=== PATIENT | female | born 1945 | race Caucasian/White ===

== ENCOUNTER 2019-03-04 07:02 | Observation (INO) | payer OTHER ==
[~2019-03-04] VITALS: Ht 157.5 cm; Wt 80.7 kg
[2019-03-04 07:29] VITALS: BP 145/93
[2019-03-04 08:48] VITALS: BP 145/93
[2019-03-04] MEDS ORDERED: LIPI20 PO (16:00)
[2019-03-04] MEDS ORDERED: CLOTRIMAZOLE TR10 M1 MM (16:01)
[2019-03-04] MEDS ORDERED: ARICEPT5 MG PO (16:01)
[2019-03-04] MEDS ORDERED: OXYBUTYNIN CHLO15 M1 PO (16:02)
[2019-03-04] MEDS ORDERED: CARVEDILOL6.25 M1 PO (16:02)
[2019-03-04] MEDS ORDERED: PAROXETINE HCL20 M1 (16:03)
[2019-03-04] MEDS ORDERED: LOSARTAN POTASS50 M1 (16:03)
[2019-03-04] MEDS ORDERED: METFORMIN500 M1 PO (16:04)
[2019-03-04] MEDS ORDERED: LORAZEPAM1 MG (16:05)
--- NOTE | 2019-03-04 16:45 | NUR ---
RECEIVED PATIENT ALERT AND ORIENTED WITH DRESSING TO [facility] LEFT KNEE. PATIENT IS S/P TOTAL KNEE AND HAD SUTURES AND DERMABOND IN PLACE. COLD FLOW MACHINE IN PLACE AND PATIENT HAD RECEIVED DILAUDID AND ANCEF IN THE OR. PATIENT HAS VITALS STABLE AND NO FEVER NOTED. PATIENT HAS PHAN TO GRAVITY AND URINE IS REED. PATIENT HAS HSITOR OF OVERACTIVE BLADDER, SURGERY TO THE SPINE,HYSTERECTOMY, DIABETES, HTN, LYMPHOMA WITH CHEMO IN 2016 AND CHOLECYSECTOMY AND HERNIA REPAIR. SHE STATES SHE HAS BILATERAL CATARACTS TTHE EYES AND HAD BEEN WALKING WITH A CANE AT HOME. PATIENT HAS FAMILY AT BEDSIDE AND ATTENTIVE WITH CARE. PATIENT HAS NOT AMBULATED SINCE ARRIVAL TO [facility] FLOOR. SHE IS REQUESTING FOOD AND COFFEE. OFFERED FLUIDS AND NO CCHO DIET INDICATED. APTIENT HAS ALLERGY TO BACTROBAN. NEOMYCIN AND POLYMYOCIN. PATIENT VITALS AT [facility] TIME AT188/74, 95MAP, 58, 20, 98.3.
--- NOTE | 2019-03-04 17:06 | NUR ---
RECEIVED PT VIA GUERNEY FROM O/[facility], ACCOMPANIED BY RN, TRANSPORTER, AND PT'S SON, FELICE GUTIERREZ. PT A/A/O X 4, CALM, COOPERATIVE; WEARS GLASSES (W/ PT). PT S/P TOTAL L KNEE REPLACEMENT 03/04/19, LLE WEAKNESS W/ WT BEARING VINITA, +C/S/M, FALL RISK PROTOCOL IN PLACE; USES CANE AT HOME TO AMBULATE; RYAN RADIAL AND PEDAL PULSES PRESENT, CAP REFILL < 3 SECS, +2 NON-PITTING EDEMA AROUND SURGICAL SITE, SCD BY BEDSIDE; SURGICAL INCISION PER PHOTO SENT BY O/R RUNNING FROM LEFT LOWER THIGH TO LEFT KNEE TO LEFT UPPER LOWER LEG W/ SUTURES, DERMABOND MESH, AQUACEL, AND JUSTIN-WRAP; [facility] C[facility] DEVICE IN PL[facility]; DRESSING TO BE KEPT FOR 2 WEEKS UNTIL OUTPT VISIT; C/O CONSTANT DULL PAIN TO L KNEE 5/10, EXACERBATED BY MOVEMENT AND WALKING, RELIEVED BY REST AND PAIN MEDICATION. DENIES CHEST PAIN OR DISCOMFORT AT THIS TIME. LUNGS CTAB, CHEST RISING EVENLY, 2LNC, 94%, NO ACUTE RESPIRATORY DISTRESS NOTED. PT VOIDS FREELY BUT ON F/C FOR COMFORT D/T S/P L KNEE SX, DRAINING CLEAR YELLOW URINE. IV SITE RH 22G, CDI. ORIENTED PT AND SON TO ROOM, BED CONTROLS, CALL LIGHT SYSTEM. SIDE RAILS UP X 2, BED IN LOW POSITION. WILL ENDORSE TO MURTAZA LEON.
--- NOTE | 2019-03-04 19:30 | NUR ---
RECEIVED PATIENT IN BED AWAKE, ALERT AND ORIENTED. DENIES POST OPERATIVE APIN AT THIS TIME. BREATHING EASY AND NONLABOR SATTING AT 96% ON O2 AT 2L VIA NC. PHAN TO GRAVITY WITH YELLOW URINE OUTPUT. DRESSING TO LEFT KNEE CDI WITH COLD PACK MACHINE IN PLACE. IV TO RH INTACT AND INFUSING WELL. WILL CONTINUE TO MONITOR. CALL LIGHT WITHIN REACH.
[2019-03-04 20:49] LABS: CALCIUM 8.4 mg/dL (8.5-10.1); CARBON DIOXIDE 23.7 mmol/L (21-32); CHLORIDE SERUM 109 mmol/L (98-107); CREATININE SERUM 1.1 mg/dL (0.6-1.0); GLUCOSE SERUM 231 mg/dL (74-106); POTASSIUM SERUM 4.7 mmol/L (3.5-5.1); SODIUM SERUM 144 mmol/L (136-145)
[2019-03-04 21:07] VITALS: BP 178/66
[2019-03-04 21:15] VITALS: BP 155/67
--- NOTE | 2019-03-05 01:39 | NUR ---
STILL AWAKE WATCHING TELEVISION, DENIES POST OPERATIVE PAIN . WILL CONTINUE TO MONITOR.
[2019-03-05 05:11] VITALS: BP 140/55
--- NOTE | 2019-03-05 05:12 | NUR ---
SLEPT AT LONG INTERVALS. DENIES PAIN TO OPERATIVE SITE THE ENTIRE SHIFT. ALL NEEDS ATTENDED.
[2019-03-05 07:19] LABS: PLATELET COUNT 140 x10^3mcL (130-400); RED CELL DISTRIBUTION WIDTH 13.1 % (11.5-14.5)
--- NOTE | 2019-03-05 07:25 | NUR ---
RECEIVED PT. IN BED A/A/O X 3. NO SOB, NO N/V NOTED. PT. DENIES ANY PAIN AT THIS TIME. NS RUNNING AT 80 CC/HR VIA IV SITE AT R HAND. F/C DRAINING REED URINE. COOL PACK MACHINE NOTED TO LLE. ROBERTO CARLOS CATH. NOTED TO R CHEST. BED IN LOW POS., CALL LIGHT WITHIN REACH. SIDE RAILS UP X3.
[2019-03-05 07:37] LABS: CALCIUM 8.2 mg/dL (8.5-10.1); CARBON DIOXIDE 25.6 mmol/L (21-32); CHLORIDE SERUM 108 mmol/L (98-107); CREATININE SERUM 1.3 mg/dL (0.6-1.0); GLUCOSE SERUM 189 mg/dL (74-106); POTASSIUM SERUM 5.2 mmol/L (3.5-5.1); SODIUM SERUM 142 mmol/L (136-145)
[2019-03-05 07:49] LABS: BASOPHIL % 0 % (0-2)
[2019-03-05 11:00] VITALS: BP 124/53
--- NOTE | 2019-03-05 15:17 | NUR ---
RECEIVED A PHONE CALL FROM DR. ALMANZA RAGARDING PT.'S CONDITION. DR. ALMANZA WAS UPDATED ON PT.'S CONDITION. K LEVEL (5.2) WAS REPORTED TO DR. ALMANZA. NO FURTHER ORDER RECEIVED AT THIS TIME. DR. ALMANZA SAID TO REMOVE F/C TODAY AND THAT PT. CAN POSSIBLY BE DISCHARGED THIS AFTERNOON. DR. ALMANZA SAID TO LEAVE THE DRESSING TO LEFT KNEE IN PLACE FOR 2 WEEKS UNTIL PT. IS SEEN BY HIM. DR. ALMANZA STATED TO REMOVE ONLY THE COOL PACK MACHINE TO LLE PRIOR TO PT.'S DISCHARGE.
--- NOTE | 2019-03-05 15:40 | NUR ---
PT. STATED THAT SHE STILL FEELS ON AND OFF NUMBNESS TO HER LLE AND THAT SHE PREFERED TO STAY ONE MORE NIGHT TO MAKE SURE EVERYTHING IS FINE BEFORE GOING HOME. DR. ALMANZA WAS MADE AWARE OF PT.'S C/O ON AND OFF FEELING OF NUMBNESS TO HER LLE AND THAT PT. PREFERED TO STAY ONE MORE NIGHT. DR. ALMANZA STATED " OK, LET THE PATIENT STAY ONE MORE NIGHT. WE'LL DISCHARGE HER IN THE MORNING AFTER PHYSICAL THERAPY."
--- NOTE | 2019-03-05 16:51 | NUR ---
REMAINS IN STABLE CONDITION AT THIS TIME. PT. VOIDED FREELY POST F/C REMOVAL. WILL CONTINUE TO MONITOR.
[2019-03-05 17:47] VITALS: BP 112/52
--- NOTE | 2019-03-05 20:09 | NUR ---
RECEIVED PATIENT IN BED AWAKE, ALERT AND ORIENTED WITH NO C/O PAIN TO LEFT KNEE. DRESSING CDI WITH JUSTIN WRAP BANDAGE IN PLACE AND COOL PACK MACHINE. BREATHING EASYA ND NONLABOR SATTING AT 99% RA. IV TO RH INTACT AND INFUSING WELL. WILL CONTINUE TO MONITOR. CALL LIGHT WITHIN REACH.
[2019-03-05 21:03] VITALS: BP 136/66
--- NOTE | 2019-03-05 21:17 | NUR ---
C/O POST OPERATIVE PAIN ON LEFT KNEE. NORCO 1TAB PO GIVEN PRESCRIBED. WILL CONTINUE TO MONITOR.
--- NOTE | 2019-03-05 23:40 | NUR ---
SLLEPING THIS TIME AFTER PAIN MEDS WAS GIVEN. WILL CONTINUE TO MONITOR.
--- NOTE | 2019-03-06 02:52 | NUR ---
AWAKE THIS TIME C/O PPAIN TO LEFT KNEE, NORCO 1 TAB PO GIVEN PRESCRIBED.
--- NOTE | 2019-03-06 05:27 | NUR ---
SLEPT FAIRLY C/O POST OP PAIN X2 THE ENTIRE SHIFT AND MEDICATED PRESCRIBED. ALL NEEDS ATTENDED.
[2019-03-06 06:20] VITALS: BP 125/62
[2019-03-06 06:36] LABS: BASOPHIL % 0.2 % (0-2); PLATELET COUNT 133 x10^3mcL (130-400); RED CELL DISTRIBUTION WIDTH 13.5 % (11.5-14.5)
[2019-03-06 06:56] LABS: CALCIUM 8.4 mg/dL (8.5-10.1); CARBON DIOXIDE 27.2 mmol/L (21-32); CHLORIDE SERUM 110 mmol/L (98-107); CREATININE SERUM 1.2 mg/dL (0.6-1.0); GLUCOSE SERUM 187 mg/dL (74-106); POTASSIUM SERUM 4.9 mmol/L (3.5-5.1); SODIUM SERUM 144 mmol/L (136-145)
[2019-03-06] MEDS ORDERED: COL100 PO (07:14)
[2019-03-06] MEDS ORDERED: ACETAMINOPHEN-H1 TA1 PO (07:14)
[2019-03-06] MEDS ORDERED: ECO81 PO (07:15)
--- NOTE | 2019-03-06 07:30 | NUR ---
PT IS AAO4. VERBALLY REPOSPONSIVE, ABLE TO MAKE NEEDS KNOWN. RESP EVEN AND UNLABORED. PT ON 02 2LMP N/C. LUNG SOUNDS CTA, DIMINISHED BILATERALLY. OXYGEN REMOVED AT THIS TIME TO ASSESS HOW PT DOES WITHOUT O2. PT TO D/C TO HOME TODAY. ABDOMEN SOFT, NONTENDER, NONDISTENDED. BOWEL SOUNDS ACTIVE. DENIES N/V. PERIPHERAL PULSES MODERATELY PALPABLE. PT IS S/P L KNEE REPLACEMENT. SX INCISION TO L KNEE, CLOSED WITH SUTURES AND DERMABOND, COVERED WITH JUSTIN BANDAGE. BANDAGE ONLY TO BE OPEN BY SURGEON. PT HAS L LEG +1 PITTING EDEMA. DENIES NUMBNESS AND TINGLING. CAP REFILL <3 SECONDS. IV CATH TO RH WITH FLUIDS RUNNING. SITE WNL. NO S/S OF INFECTION OR INFILTRATION NOTED. PT STATE SHE HAS LEFT KNEE PAIN, NORCO WILL BE GIVEN. CALL LIGHT WITHIN REACH. FALL PROTOCOL FOLLOWED.
--- NOTE | 2019-03-06 07:47 | NUR ---
NORCO 5/325MG PO GIVEN FOR ACHING BACK PAIN 02/11. PT EDUCATED TO DRINK PLENTY OF FLUIDS AND HAVE A HIGH FIBER DIET WHILE TAKING NORCO. RESP EVEN AND UNLABORED. PT SITTING IN BEDSIDE CHAIR WITH LEGS ELEVATED. CALL LIGHT WITHIN REACH. WILL CONTINUE TO MONITOR.
[2019-03-06 09:01] VITALS: BP 134/98
--- NOTE | 2019-03-06 09:11 | NUR ---
PT IS SITTING UP IN CHAIR AT BEDSIDE. RESP EVEN AND UNLABORED. PT STATES PAIN HAS IMPROVED. BUT INCREASES WITH MOVEMENT. DR. ALMANZA MET WITH PT AND DISCUSSED POC. STATED PT CAN DISCHARGE TO HOME TODAY. PT AGREES WITH POC. DUE MEDS GIVEN. B/P 134/98, (110), HR 68. CALL LIGHT WITHIN REACH. WILL CONTINUE TO MONITOR.
--- NOTE | 2019-03-06 11:00 | NUR ---
ASSISTED PT WITH BEDPAN AND GOWN CHANGE. PT BACK IN BEDSIDE CHAIR WITH BOTH EXTREMITIES ELEVATED. RESP EVEN AND UNLABORED. NO DISTRESS NOTED. PT STATES HE PAIN IS CONTROLLED AT THIS TIME. CALL LIGHT WITHIN REACH.
[2019-03-06 12:08] VITALS: BP 134/98
--- NOTE | 2019-03-06 12:50 | NUR ---
PT DISCHARGED TO HOME IN NO DISTRESS. DISCHARGE INSTRUCTIONS REVIEWED. ALL FORMS SIGNED, ALL QUESTIONS ANSWERED. IV CATH TO RH REMOVED. SITE WNL. COVERED WITH GAUZE AND BANDAID. VS: 99.2, 67, 18, 134/99, 93% ON R/A. PT STATES HER LEG IS UNCOMFORTABLE BUT REFUSED PAIN MEDICATION. PT ASSISTED BY CUTTER INSPECTOR TO LOBBY IN W/C. ALL PERSONAL BELONGINGS TAKEN HOME.
== END 2019-03-06 12:52 | disposition home or self-care (01) | DRG 470 ==
LOC: MU 07:02 → DU 10:30 → MU 17:06
PROVIDERS: ADMIT Orthopaedic Surgery
PROC: 0SRD0J9 Replacement of Left Knee Joint with Synthetic Substitute, Cemented, Open Approach (ICD-10-PCS; principal; 2019-03-04 10:30)
DX: M17.12 Unilateral primary osteoarthritis, left knee (principal); E11.9 Type 2 diabetes mellitus without complications; I10 Essential (primary) hypertension; E66.9 Obesity, unspecified; Z68.33 Body mass index [BMI] 33.0-33.9, adult
CPT/HCPCS: 82962; 97116-GP; 97530-GP; C1713; C1776; G0378; J0690; J1100; J1170; J1885; J2270; J2405; J2704; J3010; J3490; J7030; Q0092